=== PATIENT | male | born 1965 | race African-American/Black ===

== ENCOUNTER 2016-10-12 20:58 | Emergency (ER) | payer OTHER, MEDICAID ==
[~2016-10-12] VITALS: Ht 167.6 cm; Wt 73.0 kg
[~2016-10-12 20:58] MED LIST: DILT120C2 PO; LISI1TAB13 PO
[2016-10-12] MEDS ORDERED: KETOROLAC 30MG/ML VIAL IM ONE (23:00)
[2016-10-13 00:38] VITALS: BP 124/74
== END 2016-10-13 00:35 | disposition home or self-care (01) ==
LOC: ER 20:59
DX: M25.562 Pain in left knee (principal); J45.909 Unspecified asthma, uncomplicated; I10 Essential (primary) hypertension; W19.XXXA Unspecified fall, initial encounter; Y93.89 Activity, other specified; Y92.89 Other specified places as the place of occurrence of the external cause; Y99.8 Other external cause status
CPT/HCPCS: 73562; 99284; J1885

== ENCOUNTER 2017-03-02 00:16 | Emergency (ER) | payer BC, MEDICAID ==
[~2017-03-02] VITALS: Ht 167.6 cm; Wt 82.0 kg
[2017-03-02 05:44] VITALS: BP 146/90
== END 2017-03-02 05:40 | disposition home or self-care (01) ==
LOC: ER 00:16
DX: T63.301A Toxic effect of unspecified spider venom, accidental (unintentional), initial encounter (principal); J45.909 Unspecified asthma, uncomplicated; Y92.89 Other specified places as the place of occurrence of the external cause
CPT/HCPCS: 99283; Z7610

== ENCOUNTER 2017-12-02 19:33 | Emergency (ER) | payer BC, MEDICAID ==
[~2017-12-02] VITALS: Ht 167.6 cm; Wt 82.0 kg
[~2017-12-02 19:33] MED LIST changes: +DILT-26 PO; -DILT120C2 PO
[2017-12-03] MEDS ORDERED: MORPHINE SULFATE 4 MG/ML CPJ (NOT FOR IM USE) IV STA (03:21)
[2017-12-03] MEDS ORDERED: SODIUM CHLORIDE 0.9% 1,000 ML IV ONE (03:21)
[2017-12-03] MEDS ORDERED: ONDANSETRON HCL 4MG/2ML VIAL IV STA (03:21)
[2017-12-03] MEDS ORDERED: FAMOTIDINE 20MG/2ML VIAL IV STA (03:21)
[2017-12-03 04:00] LABS: BASOPHILS % 0.3 % (0.0-2.0); EOSINOPHILS % 4.2 % (0.0-5.0); HEMATOCRIT. 30.7 % (42.0-52.0); HEMOGLOBIN. 10.2 g/dL (14.0-18.0); MEAN CORPUSCULAR HEMOGLOBIN 24.2 pg (28.0-32.0); MEAN PLATELET VOLUME 7.5 fl (7.4-10.4); MONOCYTES % 8.4 % (2.0-8.0); NEUTROPHILS % 71.1 % (40.0-76.0); PLATELET 348 x1000/uL (130-400); RED BLOOD CELL COUNT 4.21 mill/uL (4.7-6.1); RED CELL DISTRIBUTION WIDTH 15.2 % (11.6-14.6)
[2017-12-03 04:02] LABS: CHLORIDE 102 mEq/L (98-107)
[2017-12-03 04:08] LABS: D-DIMER 1.02 mg/L FEU (<0.50); PROTHROMBIN TIME 10.6 sec (9.4-11.6)
[2017-12-03 04:10] LABS: ETHANOL BLOOD < 10 mg/dL
[2017-12-03] MEDS ORDERED: KCL 20MEQ/100ML PREMIX 100 ML IV ONE (04:15)
[2017-12-03 06:23] VITALS: BP 140/78
== END 2017-12-03 06:29 | disposition home or self-care (01) ==
LOC: ER 19:33
DX: I88.0 Nonspecific mesenteric lymphadenitis (principal); E87.6 Hypokalemia; J45.909 Unspecified asthma, uncomplicated; K57.90 Diverticulosis of intestine, part unspecified, without perforation or abscess without bleeding; R94.31 Abnormal electrocardiogram [ECG] [EKG]; Z98.890 Other specified postprocedural states
CPT/HCPCS: 36415; 74176; 80053; 82962; 83605; 83690; 84484; 85025; 85379; 85610; 93005; 96365; 96366; 96375; 99285; G0482; J2270; J2405; J3480; J3490; J7030; Z7610

== ENCOUNTER 2017-12-07 16:04 | Inpatient (IN) | payer BC ==
[2017-12-07] VITALS: BP 151/81
[~2017-12-07] VITALS: Ht 167.6 cm; Wt 81.6 kg
[2017-12-07] MEDS ORDERED: FAMOTIDINE 20MG/2ML VIAL IV STA (17:12)
[2017-12-07] MEDS ORDERED: ONDANSETRON HCL 4MG/2ML VIAL IV STA (17:12)
[2017-12-07] MEDS ORDERED: SODIUM CHLORIDE 0.9% 1,000 ML IV ONE (17:12)
[2017-12-07] MEDS ORDERED: MORPHINE SULFATE 4 MG/ML CPJ (NOT FOR IM USE) IV STA (17:12)
[2017-12-07] MEDS ORDERED: METRONIDAZOLE 500 MG PREMIX 100 ML IV ONE (17:15)
[2017-12-07] MEDS ORDERED: PIPERACILLIN/TAZ 3.375G PREMIX 50 ML IV ONE (17:15)
[2017-12-07] MEDS ORDERED: KETOROLAC 15MG/ML VIAL IV ONE (17:15)
[2017-12-07 17:41] LABS: BASOPHILS % 0.2 % (0.0-2.0); EOSINOPHILS % 5.4 % (0.0-5.0); LYMPHOCYTES % 17.9 % (20.0-50.0); MEAN CORPUSCULAR HEMOGLOBIN 24.1 pg (28.0-32.0); MEAN CORPUSCULAR VOLUME 72.6 fL (80.0-94.0); MEAN PLATELET VOLUME 7.1 fl (7.4-10.4); MONOCYTES % 9.1 % (2.0-8.0); NEUTROPHILS % 67.4 % (40.0-76.0); PLATELET 409 x1000/uL (130-400); RED BLOOD CELL COUNT 4.55 mill/uL (4.7-6.1); RED CELL DISTRIBUTION WIDTH 15.3 % (11.6-14.6)
[2017-12-07 17:45] LABS: CHLORIDE 100 mEq/L (98-107)
[2017-12-07 17:46] LABS: INR 1.1; PROTHROMBIN TIME 11.4 sec (9.4-11.6)
[2017-12-07 17:49] LABS: ETHANOL BLOOD < 10 mg/dL
[2017-12-07 19:44] LABS: CLARITY URINE CLEAR (CLEAR); COLOR URINE YELLOW (YELLOW); KETONES URINE NEGATIVE (NEGATIVE); LEUKOCYTE ESTERASE URINE NEGATIVE (NEGATIVE); NITRITE URINE NEGATIVE (NEGATIVE); OCCULT BLOOD URINE NEGATIVE (NEGATIVE); PROTEIN URINE NEGATIVE (NEGATIVE); SPECIFIC GRAVITY URINE 1.017 (1.005-1.030); UROBILINOGEN URINE 0.2 E.U./dL (0.2-1.0)
[2017-12-07 20:00] LABS: *AMPHETAMINES SCREEN URINE NEGATIVE (NEGATIVE); *BARBITURATES SCREEN URINE NEGATIVE (NEGATIVE); *BENZODIAZEPINES SCREEN URINE NEGATIVE (NEGATIVE); *COCAINE SCREEN URINE NEGATIVE (NEGATIVE); CANNABINOID URINE SCREEN NEGATIVE (NEGATIVE); METHADONE URINE SCREEN NEGATIVE (NEGATIVE); OPIATES URINE SCREEN NEGATIVE (NEGATIVE)
[2017-12-07 20:01] LABS: PHENCYCLIDINE URINE SCREEN NEGATIVE (NEGATIVE)
[2017-12-07] MEDS ORDERED: KCL 20MEQ/100ML PREMIX 100 ML IV ONE (22:15)
[2017-12-07 22:45] VITALS: BP 151/81
[2017-12-08] VITALS: BP 151/80
[2017-12-08] MEDS ORDERED: DEXT 5%/0.45% NACL 1000ML 1,000 ML IV SCH (01:21)
[2017-12-08] MEDS ORDERED: ACETAMINOPHEN 325MG TABLET PO PRN (01:30)
[2017-12-08] MEDS ORDERED: DIPHENHYDRAMINE 50MG/ML VIAL IV PRN (01:30)
[2017-12-08] MEDS ORDERED: MAGNESIUM/ALUMINUM HYDROXIDE/SIMETHICONE 30ML UDC PO PRN (01:30)
[2017-12-08] MEDS ORDERED: NA PHOS,M-B/NA PHOS,DI-BA ENEMA 118ML PR PRN (01:30)
[2017-12-08] MEDS ORDERED: ACETAMINOPHEN 650MG/20.3ML UDC GT PRN (01:30)
[2017-12-08] MEDS ORDERED: HYDROCODONE/ACETAMINOPHEN 10/325MG TABLET PO PRN (01:30)
[2017-12-08] MEDS ORDERED: DOCUSATE SODIUM 100MG CAPSULE PO PRN (01:30)
[2017-12-08] MEDS ORDERED: MORPHINE SULFATE 4 MG/ML CPJ (NOT FOR IM USE) IV PRN (01:30)
[2017-12-08] MEDS ORDERED: HYDROCODONE/ACETAMINOPHEN 5/325MG TABLET PO PRN (01:30)
[2017-12-08] MEDS ORDERED: GUAIFENESIN 200MG/10ML SUGAR FREE UDC PO PRN (01:30)
[2017-12-08] MEDS ORDERED: IPRATROPIUM/ALBUTEROL 0.5-3(2.5)MG/3ML NEB INH PRN (01:30)
[2017-12-08] MEDS ORDERED: ACETAMINOPHEN 650MG SUPP PR PRN (01:30)
[2017-12-08] MEDS ORDERED: ONDANSETRON HCL 4MG/2ML VIAL IV PRN (01:30)
[2017-12-08 03:29] LABS: CLARITY URINE CLEAR (CLEAR); COLOR URINE YELLOW (YELLOW); KETONES URINE NEGATIVE (NEGATIVE); LEUKOCYTE ESTERASE URINE NEGATIVE (NEGATIVE); NITRITE URINE NEGATIVE (NEGATIVE); OCCULT BLOOD URINE NEGATIVE (NEGATIVE); PROTEIN URINE NEGATIVE (NEGATIVE); SPECIFIC GRAVITY URINE 1.012 (1.005-1.030); UROBILINOGEN URINE 0.2 E.U./dL (0.2-1.0)
[2017-12-08 03:38] LABS: *AMPHETAMINES SCREEN URINE NEGATIVE (NEGATIVE); *BARBITURATES SCREEN URINE NEGATIVE (NEGATIVE); *BENZODIAZEPINES SCREEN URINE NEGATIVE (NEGATIVE); *COCAINE SCREEN URINE NEGATIVE (NEGATIVE); CANNABINOID URINE SCREEN NEGATIVE (NEGATIVE); METHADONE URINE SCREEN NEGATIVE (NEGATIVE); OPIATES URINE SCREEN PRESUMTIVE POSITIVE (NEGATIVE); PHENCYCLIDINE URINE SCREEN NEGATIVE (NEGATIVE)
[2017-12-08 04:00] VITALS: BP 114/81
[2017-12-08] MEDS ORDERED: SODIUM CHLORIDE 0.9% INJ 3ML FLUSH IVF SCH (06:00)
[2017-12-08 08:43] LABS: CREATINE KINASE 89 IU/L (39-308)
[2017-12-08 08:47] LABS: CREATINE KINASE MB FRACTION 0.8 ng/mL (0.5-3.6)
[2017-12-08 10:45] VITALS: BP 140/86
[2017-12-08 16:11] LABS: CREATINE KINASE 100 IU/L (39-308)
[2017-12-08 16:12] LABS: CREATINE KINASE MB FRACTION 0.5 ng/mL (0.5-3.6)
[2017-12-08 19:58] LABS: CHLORIDE 104 mEq/L (98-107)
[2017-12-08 20:49] VITALS: BP 146/78
[2017-12-08 22:02] LABS: BASOPHILS % 0.3 % (0.0-2.0); EOSINOPHILS % 7.8 % (0.0-5.0); HEMATOCRIT. 30.7 % (42.0-52.0); HEMOGLOBIN. 10.2 g/dL (14.0-18.0); MEAN CORPUSCULAR HEMOGLOBIN 24.3 pg (28.0-32.0); MEAN PLATELET VOLUME 7.2 fl (7.4-10.4); NEUTROPHILS % 54.9 % (40.0-76.0); PLATELET 399 x1000/uL (130-400); RED BLOOD CELL COUNT 4.21 mill/uL (4.7-6.1); RED CELL DISTRIBUTION WIDTH 15.2 % (11.6-14.6)
[2017-12-08] MEDS ORDERED: POTASSIUM CHLORIDE 20MEQ TABLET SR PO NR (23:00)
== END 2017-12-08 23:00 | disposition home or self-care (01) | DRG 684 ==
LOC: ER 20:48 → 6EST 21:25 → EDBEDREQTM 21:26 → EDBEDREQ 21:26 → ENRESERV 21:51 → ER 22:39
PROVIDERS: ADMIT Family Medicine; ATTEND Family Medicine
DX: N17.1 Acute kidney failure with acute cortical necrosis (principal); K52.9 Noninfective gastroenteritis and colitis, unspecified; I88.0 Nonspecific mesenteric lymphadenitis; E86.0 Dehydration; E87.6 Hypokalemia; J45.909 Unspecified asthma, uncomplicated; Z82.49 Family history of ischemic heart disease and other diseases of the circulatory system; Z79.899 Other long term (current) drug therapy; Z91.010 Allergy to peanuts
CPT/HCPCS: 36415; 71045; 74018; 74176; 80053; 80305; 81003; 82550; 82553; 83605; 83690; 84484; 85025; 85610; 87040; 87086; 96365; 96367; 96375; 99285; C1893; G0482; J1885; J2270; J2405; J2543; J3480; J3490; J7030